=== PATIENT | female | born 1995 | race Two or more races ===

== ENCOUNTER → 2021-07-06 | Outpatient (CLI) | payer OTHER ==
--- NOTE | 2021-07-06 13:18 | RAD ---
EXAM: Pelvic sonogram. HISTORY: Pain. IUD. TECHNIQUE: Transabdominal sonographic imaging of the pelvis was performed. COMPARISON: None. FINDINGS: The uterus measures 11.0 x 5.9 x 5.4 cm. The endometrial stripe measures 8.1 abdomen thickn ess. The uterus is retroflexed. There is an IUD within the endometrial cavity in expected position. T he ovaries are normal in size and demonstrate normal blood flow. There is no pelvic free fluid. IMPRESSION: 1. IUD in expected position. 2. No acute sonographic finding. Electronically signed by: Annamarie Coles MD (07/06/2021 1:15 PM) [id number]
== END ==
LOC: US 12:28
PROVIDERS: ATTEND Family Medicine
DX: R10.2 Pelvic and perineal pain (principal); Z97.5 Presence of (intrauterine) contraceptive device
CPT/HCPCS: 76856